=== PATIENT | male | born 1985 | race Caucasian/White ===

== ENCOUNTER 2016-08-09 04:52 | Emergency (ER) | payer MEDICARE | END 2016-08-09 07:15 | disposition home or self-care (01) | LOC: ER 04:52 | DX: K57.32 Diverticulitis of large intestine without perforation or abscess without bleeding (principal); M10.9 Gout, unspecified; F17.210 Nicotine dependence, cigarettes, uncomplicated; Z88.5 Allergy status to narcotic agent | CPT/HCPCS: 36415; 96360 ==